=== PATIENT | male | born 1955 | race Caucasian/White ===

== ENCOUNTER 2024-11-12 16:02 | Inpatient (IN) | payer MEDICARE, OTHER, SELFPAY ==
[2024-11-12 16:05] VITALS: BMI 32.9
[2024-11-12 16:07] VITALS: BP 159/111
[2024-11-12 16:10] VITALS: BP 159/111
[2024-11-12] MEDS: NITROGLYCERIN PREMIX 250 IV (16:44)
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
[2024-11-12 17:19] LABS: Hematocrit 37.1 % (39.0-52.0); Hemoglobin 12.2 g/dL (13.0-18.0); Mean Corp Hgb Conc. 32.9 g/dL (33.0-37.0); Mean Corpuscular Volume 91.4 fL (80.0-94.0); Red Cell Dist. Width 13.1 % (11.5-14.5)
[2024-11-12] MEDS: HEPARIN 25000 UNITS/250 ML IV (17:50)
[2024-11-12 18:22] LABS: APTT 32.1 Sec (23.4-35.0)
[2024-11-12 18:29] LABS: ALT (SGPT) 30 U/L (0-50); AST (SGOT) 34 U/L (17-59); Albumin 3.8 g/dl (3.5-5.0); Alkaline Phosphatase 99 U/L (38-126); Blood Urea Nitrogen 12 mg/dl (9-20); Calcium 9.4 mg/dl (8.4-10.2); Carbon Dioxide 31 mmol/L (22-30); Chloride 102 mmol/L (98-107); Glucose 101 mg/dl (70-99); Magnesium 1.8 mg/dl (1.6-2.3); Potassium 4.2 mmol/L (3.5-5.1); Sodium 136 mmol/L (135-145); Total Protein 6.7 g/dl (6.3-8.2); eGFR > 60.00
--- NOTE | 2024-11-12 19:00 | PTCARENOTE ---
~0830: Received phone call from Hari Burnett giving report on direct admit.
~0930: Per Felipe Burnett, patient has pickup time from there between [id number].
~1330: Felipe Burnett called, patient will be picked up by 1430.
~1500: Felipe Burnett called, patient was just oiked up to be transferred to [facility]. The Rn also informed me that patient's heparin gtt was therapeutic at 1200.
~[id number]: Patient arrived from [facility] via ambulance stretcher. Pt Aox4, Afib 50s-60s on tele, SBP 150s, RA satting 99%. Pt denies pain at this time. Oriented to room and call hare system. bloodwork obtained and sent to lab. heparin gtt and
Nitro gtt initiated per order. VSS. Patient taken to CXR via wheelchair in stable condition by PCT. All needs met at this time, call hare within reach. Handoff report given to nightshift RN.
[2024-11-12 19:11] VITALS: BP 149/101
[2024-11-12] MEDS: DESYREL 100 MG PO (21:11)
[2024-11-12] MEDS: MS CONTIN (EXTENDED RELEASE) 30 MG PO (21:11)
[2024-11-12 21:14] VITALS: BMI 32.9
[2024-11-12 22:14] VITALS: PULSE 57
[2024-11-12 22:50] VITALS: BP 118/61
[2024-11-12 23:09] LABS: Urine Character Clear (Clear)
[2024-11-13] VITALS (8 sets, daily range): BP systolic 104–145; BP diastolic 71–94; PULSE 58; BMI 32.8
[2024-11-13 00:49] LABS: APTT 36.1 Sec (23.4-35.0)
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
[2024-11-13 06:19] LABS: Hematocrit 31.8 % (39.0-52.0); Hemoglobin 10.7 g/dL (13.0-18.0); Mean Corp Hgb Conc. 33.6 g/dL (33.0-37.0); Mean Corpuscular Volume 92.2 fL (80.0-94.0); Platelet Count 140 10^3/uL (130-400); Red Cell Dist. Width 13.2 % (11.5-14.5)
--- NOTE | 2024-11-13 06:25 | PTCARENOTE ---
Pt AFib on monitor. Bradycardic with HR in 40s and dropping to 32 BPM. BP stable. Pt denies any discomfort, dizziness or lightheadedness. Resting comfortable in the bed. Heparin gtt and nitro gtt per order. EKG with critical result for prolong QTCs.
CV PA made aware.
[2024-11-13 06:27] LABS: INR 1.07; PT 14.4 Sec (11.4-14.6)
[2024-11-13 06:28] LABS: APTT 41.9 Sec (23.4-35.0)
[2024-11-13 06:53] LABS: ALT (SGPT) 28 U/L (0-50); AST (SGOT) 34 U/L (17-59); Albumin 3.3 g/dl (3.5-5.0); Alkaline Phosphatase 81 U/L (38-126); Blood Urea Nitrogen 12 mg/dl (9-20); Calcium 8.4 mg/dl (8.4-10.2); Carbon Dioxide 31 mmol/L (22-30); Chloride 104 mmol/L (98-107); Estimated Creatinine Clearance > 125 ml/min; Glucose 95 mg/dl (70-99); Potassium 4.0 mmol/L (3.5-5.1); Sodium 136 mmol/L (135-145); Total Protein 5.8 g/dl (6.3-8.2); eGFR > 60.00
[2024-11-13 07:56] LABS: Magnesium 1.9 mg/dl (1.6-2.3)
[2024-11-13] MEDS: MS CONTIN (EXTENDED RELEASE) 30 MG PO ×2 (08:03→19:40)
[2024-11-13 08:34] LABS: Hepatitis C Antibody Negative (Negative)
[2024-11-13 09:49] LABS: Glycohemoglobin (HgbA1c) 5.6 % (4.0-5.6)
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
[2024-11-13 11:57] LABS: Glucose - Point of Care 145 mg/dl (70-99)
--- NOTE | 2024-11-13 12:21 | CM ---
spoke to pt in room, he is prev indep, lives with his niece in a 1 story duplex with 26 steps to enter. he denies any dme's. plan is for CABG this admission. cm following.
[2024-11-13 13:46] LABS: APTT 38.0 Sec (23.4-35.0)
[2024-11-13] MEDS: HEPARIN 25000 UNITS/250 ML IV (16:51)
[2024-11-13 17:01] LABS: Glucose - Point of Care 98 mg/dl (70-99)
[2024-11-13 17:04] LABS: Urine Character Clear (Clear)
--- NOTE | 2024-11-13 18:01 | W.PN.UPDATE ---
Update Note
Progress Note Update
I was asked to comment on the feasibility and indication for of percutaneous revascularization for this patient by surgeon Dr. Aguilar Mckeon. Review of Mr. Rocha's coronary angiogram demonstrates severe multivessel coronary artery disease with
significant calcification. There is chronic occlusion of 2 diagonal branches with left to left collateralization. There is also significant branch vessel disease in both the circumflex and right coronary distributions. It is unclear what the culprit
of the patient's recent NSTEMI is. Given that the patient is currently asymptomatic without chest pain, and given lack of a clear culprit vessel, I do not think that there is indication for revascularization at this time. The patient should be
treated with guideline directed medical therapy for ischemic cardiomyopathy and heart failure with reduced ejection fraction. Should the patient have symptoms in the future felt to be secondary to coronary artery disease despite optimal medical
therapy, percutaneous revascularization could be considered.
[2024-11-13] MEDS: LIPITOR 10 MG PO (18:20)
--- NOTE | 2024-11-13 19:04 | PTCARENOTE ---
~2313-1866: Handoff report received from nightshift RN. Pt AOx4, Afib 50s-60s on tele with prolonged QT, SBP 130s, RA satting 99%. Patient tele alerts for 'ventricular rhythm,' rate does not change, however axis does flip, Tele strip showed to
Cathryn SALAS, no new orders at this time. Patient denies pain/ CP. Heparin gtt and Nitro gtt infusing. US and CT scan done per order. All needs met at this time, call hare within reach.
~4913-8144: PFT completed at bedside. patient independent in room. All needs met at this time, call hare within reach.
~0567-9008: Bloodwork drawn and sent to lab. Bloodwork resulted and heparin gtt changed per protocol. B/L BPs obtained for pre-op w/u.
~9547-1581: Patient independent in room. VSS at this time. Does not c/o pain. All needs met, call hare within reach. Handoff report given to nightshift RN.
[2024-11-13 20:30] LABS: APTT 43.8 Sec (23.4-35.0)
[2024-11-13 22:13] LABS: Glucose - Point of Care 97 mg/dl (70-99)
--- NOTE | 2024-11-13 23:56 | PTCARENOTE ---
Pt. has no complaints chest pain, nitro gtt infusing at 10 mcg /min (do not titrate off per CV-PA Tsilina). Heparin gtt infusing as per order. Pt. OOB to use urinal, independent. Currently resting quietly.
[2024-11-14] VITALS (10 sets, daily range): BP systolic 128–163; BP diastolic 81–108; PULSE 49–59
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
[2024-11-14 03:05] LABS: Hematocrit 31.0 % (39.0-52.0); Hemoglobin 10.3 g/dL (13.0-18.0); Mean Corp Hgb Conc. 33.2 g/dL (33.0-37.0); Mean Corpuscular Volume 89.3 fL (80.0-94.0); Platelet Count 144 10^3/uL (130-400); Red Cell Dist. Width 13.2 % (11.5-14.5)
[2024-11-14 03:19] LABS: APTT 70.5 Sec (23.4-35.0)
[2024-11-14 03:54] LABS: Blood Urea Nitrogen 13 mg/dl (9-20); Calcium 9.1 mg/dl (8.4-10.2); Carbon Dioxide 28 mmol/L (22-30); Chloride 106 mmol/L (98-107); Estimated Creatinine Clearance > 125 ml/min; Glucose 94 mg/dl (70-99); Magnesium 1.8 mg/dl (1.6-2.3); Potassium 4.0 mmol/L (3.5-5.1); Sodium 136 mmol/L (135-145); eGFR > 60.00
[2024-11-14 07:16] LABS: Glucose - Point of Care 99 mg/dl (70-99)
--- NOTE | 2024-11-14 08:14 | W.PN.CD ---
Today's Communication / Plan
-
Add aspirin
Resume Eliquis, stop hep gtt
Stop nitro
Add GDMT for ischemic cardiomyopathy over time as recovers from revascularization: adding farxiga, entresto, MRA tomorrow if tolerates
Likely will need to avoid or use low/very low dose BB given prolong QT, for now avoid until heart rate in the 60s
Discussed Life Vest for discharge, he will consider and we will revisit issue tomorrow
Impression / Plan
-
Imp
CAD with recent NSTEMI: no intervention planned
-this is a risk to life
Ischemic cardiomyopathy, LVEF 1-2 days after [place] 25-30%
Acquired long QT from acute ischemia, QT normal on admit
Permanent AFib
- Rate: does not take rate control meds, slow AFib here
- Anticoag: usually on Eliquis
- [id number] at least 4 (HTN, vascular disease, age1, DM) and perhaps 1 point for a ? hx of DVT
Former smoker, likely>100 pack year cigarette exposure
Mild Aortic Stenosis
Diabetes (or prediabetes) on metformin
Obesity, prior gastric bypass
IVC filter reported to be in place
Hx of DVT
Chronic pain
Suggest:
Optimize OMT for NSTEMI: will add aspirin, stop nitro gtt
For now avoid QT prolonging meds, anticipate QT will normalize but that could take more than 1 week, improved from yesterday
Watch for bradys and VT/Torsades
Will resume eliquis and stop heparin
Add GDMT for ischemic cardiomyopathy over time as recovers from revascularization: adding farxiga, entresto, MRA tomorrow if tolerates
Likely will need to avoid or use low/very low dose BB given prolong QT, for now avoid until heart rate in the 60s
Discussed Life Vest for discharge, he will consider and we will revisit issue tomorrow
Data (reviewed by me Keen on 11/13/2024):
EKG 11/09/2024: AFib 59 bpm, QTc 427, normal T waves, PVC, PRWP, LAD
EKG 11/10/2024: AFib 56 bpm, QTc 488, T inversions laterally
EKG 11/11/2024: AFib 45 bpn, QTc 515 ms, global impressive T inversions
Echo 11/10/2024: LVEF 25-30%, mid-distal severe anteroseptal, apical and distal lateral hypo to akinesis, distal inf dyskinesis, mod MAC, mild MR, mild , est RA 15, est PASP 39 mmHg
Echo : LVEF 55-60%.
Cath 11/11/2024: 70% mLAD, 100% mid to distal LAD, 80% pD1, 100% mD1, 90% small OM1, 70% OM2, 40% and 50% ostial and prox RCA, 70% dRCA, 90% mPDA, mildly increased LVEDP, no signif gradient across the AoV
CXR : Normal Heart size, bronhial wall thickening
Physical Exam
Vital Signs/Labs
Vital Signs
Temp Pulse Resp BP Pulse Ox
97.5 F 61 16 161/83 100
11/14/24 06:57 11/14/24 07:00 11/14/24 06:57 11/14/24 06:59 11/14/24 06:57
11/13/24 11/14/24 11/15/24
06:59 06:59 06:59
Actual Weight 241 lb 13.553 oz
11/14/24 02:53
11/14/24 02:53
PT 14.4 Sec (11.4-14.6) 11/13/24 06:02
INR 1.07 11/13/24 06:02
APTT 70.5 Sec (23.4-35.0) H 11/14/24 02:53
Magnesium 1.8 mg/dl (1.6-2.3) 11/14/24 02:53
Physical Exam
Constitutional: No acute distress
Cardiovascular: Pedal edema is absent, JVD pressure is normal, Systolic murmur absent, Diastolic murmur absent and Rhythm/rate is irregular
Respiratory: Respiratory effort normal, Lungs clear to auscul., Wheeze Absent, Crackles Absent and Rhonchi Absent
Neuro/Psych: AO x 3
Data Reviewed
-
Date of Service: November 14, 2024
EKG: Tracing Personally Visualized and interpreted (af with slow response, pvcs, lafb, TWI anterolaterally, qtc 516m/s) and Other (tele with fib with slow ventricular response, Idioventricular rhythm)
[2024-11-14] MEDS: MS CONTIN (EXTENDED RELEASE) 30 MG PO ×2 (08:40→19:29)
[2024-11-14] MEDS: ENTRESTO 49 MG/51 MG 1 TAB PO ×2 (09:05→19:29)
[2024-11-14] MEDS: LOW STRENGTH ASPIRIN 324 MG PO (09:08)
--- NOTE | 2024-11-14 10:34 | PTCARENOTE ---
Heparin gtt and nitro gtt off per provider order. Pt has no complaints CP/discomfort/sob at this time. Tele- afib. HR- 40-50s. Assessment completed as documented. Plan of care reviewed w/ pt and verbalizes understanding.
--- NOTE | 2024-11-14 11:01 | W.PN.HOSP.TC ---
Today's Communication/Plan
-
see plan
Assessment / Plan
Assessment / Plan
Mr. Edwin Rocha is a 69 yo man with hx atrial fibrillation on Eliquis, essential HTN, HLD, IVC filter, presented to [facility] for chest pain, admitted for NSTEMI with finding of reduced EF 25-30% TTE 11/10 s/p [facility] showing triple vessel disease
transferred to on 11/12 for CABG evaluation.
Coronary Artery Disease
Ischemic Cardiomyopathy with EF 25-30%
-transferred to On 11/12 after cardiac cath showed multivessel disease; treating medically, no intervention planned
-s/p IV heparin gtt, Eliquis resumed
-continue Aspirin 81mg PO QD
-continue statin
-GDMT per Cardiology
-new start Farxiga and Entresto today
-Cardiology discussing life vest for discharge
Permanent Atrial Fibrillation
-Eliquis resumed
Essential HTN
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
HLD - statin
DVT PPx Eliquis
FULL CODE
Anticipated Discharge: 24 - 48 hours
Subjective/Interval History
-
Date of Service: November 14, 2024
feeling well, denies chest pain
Objective Data
-
Labs:
Laboratory Results
11/14/24 11/14/24
02:53 09:30
WBC 7.0
Hgb 10.3 L
Hct 31.0 L
Plt Count 144
APTT 70.5 H Cancelled
Sodium 136
Potassium 4.0
Chloride 106
Carbon Dioxide 28
BUN 13
Creatinine 0.6 L
Glucose 94
Calcium 9.1
Vital Signs:
Vital Signs
Temp Pulse Resp BP Pulse Ox
97.5 F 53 16 148/85 100
11/14/24 06:57 11/14/24 09:07 11/14/24 06:57 11/14/24 09:07 11/14/24 06:57
I&O
11/13/24 11/14/24 11/15/24
06:59 06:59 06:59
Intake Total 350 / 350 240 / 240
Output Total 575 / 575 1510 / 1510 400 / 400
Balance -225 / -225 -1270 / -1270 -400 / -400
Review of Systems
-
History Source: Patient
All other systems: Reviewed and negative
Physical Exam
-
General: No Apparent Distress
HEENT: PERRLA
Respiratory: Clear to Auscultation; Negative Wheezes
Cardiac: S1/S2
GI: Soft and Nontender
Musculoskeletal: No Edema
Skin: Warm and Dry; Negative Rash
Psych: Calm
Data Reviewed
-
Diagnostic Radiology: Report Reviewed by me
Labs: Labs Reviewed by me
[2024-11-14 14:03] LABS: Glucose - Point of Care 138 mg/dl (70-99)
[2024-11-14 17:24] LABS: Glucose - Point of Care 106 mg/dl (70-99)
[2024-11-14] MEDS: LIPITOR 10 MG PO (17:54)
[2024-11-14] MEDS: ELIQUIS 5 MG PO (19:29)
[2024-11-14 21:42] LABS: Glucose - Point of Care 100 mg/dl (70-99)
--- NOTE | 2024-11-14 21:50 | PTCARENOTE ---
ax3- ambulates hallways . slow fib pvc's- afebrile bp wnl- pt ambulates hallways- voiding in bathroom- request made to use urinal for i/o's unsuccessful x3- rationale explained. pt agreed to use urinal
[2024-11-15] VITALS (8 sets, daily range): BP systolic 120–156; BP diastolic 85–100; PULSE 65; BMI 31.7
[2024-11-15 04:06] LABS: Hematocrit 37.1 % (39.0-52.0); Hemoglobin 12.5 g/dL (13.0-18.0); Mean Corp Hgb Conc. 33.7 g/dL (33.0-37.0); Mean Corpuscular Volume 90.5 fL (80.0-94.0); Platelet Count 169 10^3/uL (130-400); Red Cell Dist. Width 13.1 % (11.5-14.5)
[2024-11-15 04:24] LABS: Blood Urea Nitrogen 12 mg/dl (9-20); Calcium 9.4 mg/dl (8.4-10.2); Carbon Dioxide 27 mmol/L (22-30); Chloride 104 mmol/L (98-107); Estimated Creatinine Clearance > 125 ml/min; Glucose 98 mg/dl (70-99); Magnesium 1.7 mg/dl (1.6-2.3); Potassium 3.8 mmol/L (3.5-5.1); Sodium 137 mmol/L (135-145); eGFR > 60.00
[2024-11-15 07:31] LABS: Glucose - Point of Care 105 mg/dl (70-99)
[2024-11-15] MEDS: ENTRESTO 49 MG/51 MG 1 TAB PO ×2 (07:32→20:49)
[2024-11-15] MEDS: FARXIGA 10 MG PO (07:32)
[2024-11-15] MEDS: MS CONTIN (EXTENDED RELEASE) 30 MG PO ×2 (07:32→20:51)
[2024-11-15] MEDS: LOW STRENGTH ASPIRIN 81 MG PO (07:33)
[2024-11-15] MEDS: ELIQUIS 5 MG PO ×2 (07:33→20:51)
--- NOTE | 2024-11-15 07:39 | W.PN.HOSP.TC ---
Today's Communication/Plan
-
continue cardiac regimen
follow up further Cardiology recommendations
Assessment / Plan
Assessment / Plan
Mr. Edwin Rocha is a 69 yo man with hx atrial fibrillation on Eliquis, essential HTN, HLD, IVC filter, presented to [facility] for chest pain, admitted for NSTEMI with finding of reduced EF 25-30% TTE 11/10 s/p [facility] showing triple vessel disease
transferred to on 11/12 for CABG evaluation.
Coronary Artery Disease
Ischemic Cardiomyopathy with EF 25-30%
-transferred to On 11/12 after cardiac cath showed multivessel disease; treating medically, no intervention planned
-s/p IV heparin gtt, Eliquis resumed
-continue Aspirin 81mg PO QD
-continue statin
-GDMT per Cardiology
-new start Farxiga and Entresto
-Cardiology discussing life vest for discharge
Permanent Atrial Fibrillation
-Eliquis resumed
Essential HTN
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
HLD - statin
DVT PPx Eliquis
FULL CODE
Anticipated Discharge: 24 - 48 hours
Subjective/Interval History
-
Date of Service: November 15, 2024
chest pain free
ambulating around room
Objective Data
-
Labs:
Laboratory Results
11/15/24
03:32
WBC 7.2
Hgb 12.5 L D
Hct 37.1 L
Plt Count 169
Sodium 137
Potassium 3.8
Chloride 104
Carbon Dioxide 27
BUN 12
Creatinine 0.6 L
Glucose 98
Calcium 9.4
Vital Signs:
Vital Signs
Temp Pulse Resp BP Pulse Ox
98.2 F 71 16 146/87 99
11/15/24 07:31 11/15/24 06:00 11/15/24 07:31 11/15/24 03:15 11/15/24 07:31
I&O
11/14/24 11/15/24 11/16/24
06:59 06:59 06:59
Intake Total 240 / 240 540 / 540
Output Total 1510 / 1510 1850 / 1850
Balance -1270 / -1270 -1310 / -1310
Review of Systems
-
History Source: Patient
All other systems: Reviewed and negative
Physical Exam
-
General: No Apparent Distress
HEENT: PERRLA
Respiratory: Clear to Auscultation; Negative Wheezes
Cardiac: S1/S2
GI: Soft and Nontender
Musculoskeletal: No Edema
Skin: Warm and Dry; Negative Rash
Psych: Calm
Data Reviewed
-
Diagnostic Radiology: Report Reviewed by me
Labs: Labs Reviewed by me
--- NOTE | 2024-11-15 08:33 | W.PN.CD ---
Today's Communication / Plan
-
start spironolactone today
lifevest c/s tomorrow
d/c planning in the next 48 hours
Impression / Plan
-
Imp
CAD with recent NSTEMI: no intervention planned
-this is a risk to life
Ischemic cardiomyopathy, LVEF 1-2 days after [place] 25-30%
Acquired long QT from acute ischemia, QT normal on admit
Permanent AFib
- Rate: does not take rate control meds, slow AFib here
- Anticoag:continue Eliquis
- [id number] at least 4 (HTN, vascular disease, age1, DM) and perhaps 1 point for a ? hx of DVT
Former smoker, likely>100 pack year cigarette exposure
Mild Aortic Stenosis
Diabetes (or prediabetes) on metformin
Obesity, prior gastric bypass
IVC filter reported to be in place
Hx of DVT
Chronic pain
Suggest:
Optimize OMT for NSTEMI: intensify statin
For now avoid QT prolonging meds, anticipate QT will normalize but that could take more than 1 week, improved from yesterday
Watch for bradys and VT/Torsades
Add GDMT for ischemic cardiomyopathy over time as recovers from revascularization11/14/24 add: melissa ruiz, start MRA 11/15/24
Likely will need to avoid or use low/very low dose BB given prolong QT, for now avoid until heart rate in the 60s
Discussed Life Vest for discharge, he is agreeable, will arrange tomorrow
Data (reviewed by me Keen on 11/13/2024):
EKG 11/09/2024: AFib 59 bpm, QTc 427, normal T waves, PVC, PRWP, LAD
EKG 11/10/2024: AFib 56 bpm, QTc 488, T inversions laterally
EKG 11/11/2024: AFib 45 bpn, QTc 515 ms, global impressive T inversions
Echo 11/10/2024: LVEF 25-30%, mid-distal severe anteroseptal, apical and distal lateral hypo to akinesis, distal inf dyskinesis, mod MAC, mild MR, mild , est RA 15, est PASP 39 mmHg
Echo : LVEF 55-60%.
Cath 11/11/2024: 70% mLAD, 100% mid to distal LAD, 80% pD1, 100% mD1, 90% small OM1, 70% OM2, 40% and 50% ostial and prox RCA, 70% dRCA, 90% mPDA, mildly increased LVEDP, no signif gradient across the AoV
CXR : Normal Heart size, bronhial wall thickening
Physical Exam
Vital Signs/Labs
Vital Signs
Temp Pulse Resp BP Pulse Ox
98.2 F 65 16 126/85 99
11/15/24 07:31 11/15/24 08:00 11/15/24 07:31 11/15/24 07:32 11/15/24 07:31
11/14/24 11/15/24 11/16/24
06:59 06:59 06:59
Actual Weight 233 lb 11.04 oz
11/15/24 03:32
11/15/24 03:32
PT 14.4 Sec (11.4-14.6) 11/13/24 06:02
INR 1.07 11/13/24 06:02
APTT Cancelled 11/14/24 09:30
Magnesium 1.7 mg/dl (1.6-2.3) 11/15/24 03:32
Physical Exam
Constitutional: No acute distress
Cardiovascular: Pedal edema is absent, JVD pressure is normal, Systolic murmur absent, Diastolic murmur absent and Rhythm/rate is irregular
Respiratory: Respiratory effort normal, Lungs clear to auscul., Wheeze Absent, Crackles Absent and Rhonchi Absent
Neuro/Psych: AO x 3
Data Reviewed
-
Date of Service: November 15, 2024
EKG: Tracing Personally Visualized and interpreted (slow fib, pvcs, qtc 477m/s ant TWI) and Other (tele slow fib, pvcs)
[2024-11-15] MEDS: ALDACTONE 12.5 MG PO (09:04)
--- NOTE | 2024-11-15 11:18 | PTCARENOTE ---
Rec'd pt at handoff. Pt has been ambulatory in hallways independently w/ steady gait. Pt has no complaints CP/discomfort/sob at this time. Tele- afib w/ pvcs. Assessment completed as documented. Plan of care reviewed w/ pt and verbalizes
understanding.
[2024-11-15 13:17] LABS: Glucose - Point of Care 88 mg/dl (70-99)
[2024-11-15] MEDS: LIPITOR 40 MG PO (17:06)
[2024-11-15 17:09] LABS: Glucose - Point of Care 106 mg/dl (70-99)
[2024-11-15 22:26] LABS: Glucose - Point of Care 102 mg/dl (70-99)
--- NOTE | 2024-11-16 02:05 | PTCARENOTE ---
Received pt at change of shift resting in bed. Afib w/ PVC's on tele, HR 50's-60's. pt denies any CP or SOB at this time. Plan of care reviewed with pt. Urinal at bedside. Encouraged pt to call RN with any questions/concerns. Call hare within reach.
[2024-11-16 04:06] VITALS: BP 137/86
[2024-11-16 04:16] VITALS: BMI 31.1
[2024-11-16 04:49] LABS: Blood Urea Nitrogen 15 mg/dl (9-20); Calcium 9.2 mg/dl (8.4-10.2); Carbon Dioxide 27 mmol/L (22-30); Chloride 104 mmol/L (98-107); Estimated Creatinine Clearance 122 ml/min; Glucose 110 mg/dl (70-99); Potassium 4.0 mmol/L (3.5-5.1); Sodium 137 mmol/L (135-145); eGFR > 60.00
--- NOTE | 2024-11-16 06:19 | W.PN.UPDATE ---
Update Note
Progress Note Update
CARDIAC SURGERY ATTENDING:
It was my pleasure to evaluate Mr. Edwin Rocha. He has a complex medical history with extensive severely calcified CAD that led to a recent NSTEMI (unclear culprit vessel). His LVEF is significantly reduced at approximately 25-30%. His surgical
risk is significantly, if not prohibitively, elevated. In addition, from a technical standpoint complete surgical revascularization may not be possible. I asked my surgical colleagues to also review this case, and a consensus was reached for
exploring PCI/nonsurgical options. Unfortunately, there are no significant percutaneous revascularization options either.
Thankfully, the patient has remained asymptomatic during his hospitalization. He has been started on GDMT for his ischemic cardiomyopathy. Should he have further symptoms in the future, revascularization options will be reconsidered.
I greatly appreciate the input and expertise offered by my surgical, interventional, and medical colleagues.
Thank you.
Aguilar Mckeon MD
[phone]
[2024-11-16 07:11] VITALS: BP 129/79
[2024-11-16 07:19] LABS: Glucose - Point of Care 116 mg/dl (70-99)
[2024-11-16] MEDS: FARXIGA 10 MG PO (08:04)
[2024-11-16] MEDS: ALDACTONE 12.5 MG PO (08:04)
[2024-11-16] MEDS: ELIQUIS 5 MG PO (08:04)
[2024-11-16] MEDS: ENTRESTO 49 MG/51 MG 1 TAB PO (08:04)
[2024-11-16] MEDS: MS CONTIN (EXTENDED RELEASE) 30 MG PO (08:04)
[2024-11-16] MEDS: LOW STRENGTH ASPIRIN 81 MG PO (08:04)
--- NOTE | 2024-11-16 08:55 | W.PN.CD ---
Today's Communication / Plan
-
Suggest:
Optimize GDMT for CAD, ischemic cardiomyopathy, no BB given feli
For now avoid QT prolonging meds, anticipate QT will normalize, is improving
Watch for bradys and VT/Torsades, none so far
Patient agrees with Life Vest
OK for home today with LifeVest
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
Impression / Plan
-
Imp
CAD with recent NSTEMI
- no intervention planned.
- CT Surgery and Interventional Cardiology chose med rx
Ischemic cardiomyopathy, LVEF 1-2 days after [place] 25-30%
- Given Med Rx w/o revascularization he is a good candidate for a LifeVest to continue at least 6 weeks post [place] but perhaps for a bit longer to give max tolerated GDMT to improve LVEF
- If LVEF stays low on max tolerated med rx then he should be offered an ICD and pt is inclined to proceed with these recommendations
- No bradycardia given slow AFib
- He will
Acquired long QT from acute ischemia, QT normal on admit
- Anticipate QT will improve with time
- QTc is improving
Permanent AFib
- Rate: does not take rate control meds, slow AFib here
- Anticoag:continue Eliquis
- [id number] at least 5 (Cardiomyopathy, HTN, vascular disease, age1, DM) and perhaps 1 point for a ? hx of DVT
Former smoker, likely>100 pack year cigarette exposure
Mild Aortic Stenosis
Diabetes (or prediabetes) on metformin
Obesity, prior gastric bypass
IVC filter reported to be in place
Hx of DVT
Chronic pain
Subjective:
Feels well.
Data (reviewed by Osmani on 11/13/2024):
EKG 11/09/2024: AFib 59 bpm, QTc 427, normal T waves, PVC, PRWP, LAD
EKG 11/10/2024: AFib 56 bpm, QTc 488, T inversions laterally
EKG 11/11/2024: AFib 45 bpn, QTc 515 ms, global impressive T inversions
Echo 11/10/2024: LVEF 25-30%, mid-distal severe anteroseptal, apical and distal lateral hypo to akinesis, distal inf dyskinesis, mod MAC, mild MR, mild , est RA 15, est PASP 39 mmHg
Echo : LVEF 55-60%.
Cath 11/11/2024: 70% mLAD, 100% mid to distal LAD, 80% pD1, 100% mD1, 90% small OM1, 70% OM2, 40% and 50% ostial and prox RCA, 70% dRCA, 90% mPDA, mildly increased LVEDP, no signif gradient across the AoV
CXR : Normal Heart size, bronhial wall thickening
Physical Exam
Vital Signs/Labs
Vital Signs
Temp Pulse Resp BP Pulse Ox
97.6 F 79 20 129/79 98
11/16/24 07:11 11/16/24 08:04 11/16/24 07:11 11/16/24 08:04 11/16/24 07:11
11/15/24 11/16/24 11/17/24
06:59 06:59 06:59
Actual Weight 106 kg 103.9 kg
11/15/24 03:32
11/16/24 04:13
PT 14.4 Sec (11.4-14.6) 11/13/24 06:02
INR 1.07 11/13/24 06:02
APTT Cancelled 11/14/24 09:30
Magnesium 1.7 mg/dl (1.6-2.3) 11/15/24 03:32
Data Reviewed
-
Date of Service: November 16, 2024
[2024-11-16 12:06] LABS: Glucose - Point of Care 84 mg/dl (70-99)
--- NOTE | 2024-11-16 13:59 | W.PN.HOSP.TC ---
Addendum entered and electronically signed by Cristobal Villalpando MD 11/20/24 18:21:
HFrEF is a valid diagnosis (Chronic)
Addendum entered and electronically signed by Cristobal Villalpando MD 11/18/24 17:19:
[id number]
Original Note:
Today's Communication/Plan
-
GDMT
LifeVest prior to discharge
Avoid QTc prolonging medications for now
Follow-up cardiology, PCP outpatient
Assessment / Plan
Assessment / Plan
Mr. Edwin Rocha is a 69 yo man with hx atrial fibrillation on Eliquis, essential HTN, HLD, IVC filter, presented to [facility] for chest pain, admitted for NSTEMI with finding of reduced EF 25-30% TTE 11/10 s/p C showing triple vessel disease
transferred to on 11/12 for CABG evaluation.
Coronary Artery Disease
Ischemic Cardiomyopathy with EF 25-30%
-transferred to On 11/12 after cardiac cath showed multivessel disease; treating medically, no intervention planned
-s/p IV heparin gtt, Eliquis resumed
-continue Aspirin 81mg PO QD
-continue statin
-GDMT per Cardiology
-new start Farxiga and Entresto
- Optimizing GDMT for CAD, ischemic cardiomyopathy
� No beta-blockers given bradycardia
� LifeVest prior to discharge.
Permanent Atrial Fibrillation
-Eliquis resumed
No beta-alexis due to bradycardia
Essential HTN
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
#Acquired prolonged QTc from his acute ischemia, QTc normal on admission
# Anticipate will improve in time
� Hold on QTc prolonging medications at this time, follow-up outpatient
HLD - statin
DVT PPx Eliquis
FULL CODE
More than 30 minutes spent in discharge including
Final examination of the patient
Summarizing hospital stay
Instructions for continuing care to all relevant caregivers
Preparation of discharge records, prescriptions, and referral forms
Total time spent (in minutes): 36
Anticipated Discharge: Today
Subjective/Interval History
-
Date of Service: November 16, 2024
No acute events overnight
Objective Data
-
Labs:
Laboratory Results
11/16/24
04:13
Sodium 137
Potassium 4.0
Chloride 104
Carbon Dioxide 27
BUN 15
Creatinine 0.7
Glucose 110 H
Calcium 9.2
Vital Signs:
Vital Signs
Temp Pulse Resp BP Pulse Ox
97.5 F 88 20 129/79 98
11/16/24 11:09 11/16/24 09:00 11/16/24 11:09 11/16/24 08:04 11/16/24 11:09
I&O
11/15/24 11/16/24 11/17/24
06:59 06:59 06:59
Intake Total 540 / 540 1220 / 1220
Output Total 1850 / 1850 2225 / 2225
Balance -1310 / -1310 -1005 / -1005
Review of Systems
-
History Source: Patient
All other systems: Reviewed and negative
Physical Exam
-
General: No Apparent Distress
HEENT: PERRLA
Respiratory: Clear to Auscultation; Negative Wheezes
Cardiac: S1/S2
GI: Soft and Nontender
Musculoskeletal: No Edema
Skin: Warm and Dry; Negative Rash
Psych: Calm
--- NOTE | 2024-11-16 14:02 | W.DS.TRANS ---
DC Summary - [employer]
-
Discharge Instructions:
Discharge Diagnosis/Procedures CAD with recent NSTEMI
Ischemic cardiomyopathy, LVEF 1-2 days after [place]
25-30%
Acquired long QT from acute ischemia, QT normal
on admit
Diet Low Cholesterol,Low Fat
Activity As tolerated
Blood Work cbc and cmp in 5-7 days with pcp
Others Tests as per cardiology outpatient
Instructions:
Stand-Alone Forms:
Changes to Home Medications: Yes
Discharge Medications:
DC Medications w/original date entered in [employer]
apixaban 5 mg tablet (Eliquis) 5 mg BID Blood Clot Prevention/Tx 11/12/24
calcium 600 mg (as carbonate)-vitamin D3 5 mcg (200 unit) tablet 1 tab PO BID Supplement 11/12/24
docusate sodium 100 mg capsule (Colace) 100 mg PO PRN constipation 11/12/24
melatonin 10 mg tablet 10 mg PO HS PRN sleep 11/12/24
morphine 30 mg tablet,extended release 30 mg PO Q12H Pain 11/12/24
fmygdfmoldhh-spqixceu-spkfxw tablet (Multivitamin 50 Plus tablet) 1 tab PO DAILY Supplement 11/12/24
oxycodone 10 mg tablet 10 mg PO Q6H PRN severe pain 11/12/24
potassium 8 meq PO DAILY Supplement 11/12/24
sennosides 8.6 mg tablet (senna) 17.2 mg PO HS Constipation 11/12/24
pantoprazole 40 mg tablet,delayed release 40 mg PO DAILY Gastrointestinal Issue 11/13/24
aspirin 81 mg chewable tablet 81 mg PO DAILY 30 days #30 tabs 11/16/24
atorvastatin 40 mg tablet 40 mg PO QPM 30 days #30 tabs 11/16/24
dapagliflozin propanediol 10 mg tablet 10 mg PO DAILY 30 days #30 tabs 11/16/24
metformin 500 mg tablet 500 mg PO BID Diabetes 30 days #0 tabs 11/16/24
sacubitril 49 mg-valsartan 51 mg tablet (Entresto) 1 tab PO BID 30 days #60 tabs 11/16/24
spironolactone 25 mg tablet 12.5 mg (1/2 x 25 mg) PO DAILY 30 days #15 tabs 11/16/24
Home Medication Changes
aspirin 81 mg chewable tablet 81 mg PO DAILY 30 days #30 tabs 11/16/24
atorvastatin 40 mg tablet 40 mg PO QPM 30 days #30 tabs 11/16/24
dapagliflozin propanediol 10 mg tablet 10 mg PO DAILY 30 days #30 tabs 11/16/24
metformin 500 mg tablet 500 mg PO BID Diabetes 30 days #0 tabs 11/16/24
sacubitril 49 mg-valsartan 51 mg tablet (Entresto) 1 tab PO BID 30 days #60 tabs 11/16/24
spironolactone 25 mg tablet 12.5 mg (1/2 x 25 mg) PO DAILY 30 days #15 tabs 11/16/24
Pending Results: No
--- NOTE | 2024-11-16 14:35 | CM ---
pt for lifevest prior to dc. referral faxed, pt approved and will be fit at 4pm. MD and pt aware
--- NOTE | 2024-11-16 16:42 | PTCARENOTE ---
~[id number]: Handoff report received from nightshift RN. Pt Aox4, Afib with PVCs 50s-60s on tele, SBP 120s, RA satting 98%. pt denies pain at this time. Independent in room. Voids in urinal. 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 All needs met at this time, call
hare within reach.
~[id number]: [employer] rep in to teach life vest to patient.
~[id number]: Patient ambulating in [place] independently. VSS. Life vest rep in to fit patient for life vest. All needs met at this time, call hare within reach.
~0770-3025: Live vest teaching/ fiting complete with rep. DC paperwork reviewed with patient and family. all questions answered. VSS. Patient discharged in stable condition.
--- NOTE | 2024-11-17 09:58 | PN.CDI ---
CDI
- -
CDI:
Physician Documentation Request
Admit Date: 11/12/24 16:02
Dear Doctor Kwasi
11/13 update note from cardiology states 'Given that the patient is currently asymptomatic without chest pain, and given lack of a clear culprit vessel, I do not think that there is indication for revascularization at this time. The patient should be
treated with guideline directed medical therapy for ischemic cardiomyopathy and heart failure with reduced ejection fraction.
Please indicate in your progress notes if you are in agreement that the above diagnosis is valid for this patient:
____ - HFrEF is a valid diagnosis (Please specify acuity)
____ - HFrEF is not a valid diagnosis for this patient
____ - Other
Use of terms such as suspected, likely, concern for, or probable are acceptable for a diagnosis that is being evaluated, monitored or treated as if it exists and can be coded in the inpatient setting, when documented at the time of discharge.
Thank you,
Zuleyka Perea RN, BSN
CDI Specialist
tiger text
Please use your independent medical judgment in providing your response.
== END 2024-11-16 16:42 | disposition home or self-care (01) | DRG 281 ==
LOC: IVU 16:02
PROVIDERS: Internal Medicine; Nurse Practitioner; Physician Assistant Medical; Student in an Organized Health Care Education/Training Program; ADMITTING PHYSICIAN Thoracic Surgery (Cardiothoracic Vascular Surgery); ATTENDING PHYSICIAN Internal Medicine; FAMILY PHYSICIAN Family Medicine; OTHER PHYSICIAN Internal Medicine Cardiovascular Disease
DX: I21.4 Non-ST elevation (NSTEMI) myocardial infarction (principal); I48.21 Permanent atrial fibrillation; I50.22 Chronic systolic (congestive) heart failure; I25.10 Atherosclerotic heart disease of native coronary artery without angina pectoris; I25.5 Ischemic cardiomyopathy; I11.0 Hypertensive heart disease with heart failure; M19.90 Unspecified osteoarthritis, unspecified site; E78.00 Pure hypercholesterolemia, unspecified; G89.29 Other chronic pain; E11.9 Type 2 diabetes mellitus without complications; Z79.899 Other long term (current) drug therapy; Z87.891 Personal history of nicotine dependence; Z79.01 Long term (current) use of anticoagulants; Z79.84 Long term (current) use of oral hypoglycemic drugs; Z86.718 Personal history of other venous thrombosis and embolism
CPT/HCPCS: 71046; 71250; 80048; 80053; 81003; 82248; 82962; 83036; 83735; 85027; 85610; 85730; 86803; 86850; 86900; 86901; 93005; 93880; 93970; 94010; 94660